=== PATIENT | male | born 1950 | race Caucasian/White ===

== ENCOUNTER 2018-09-05 13:36 | Emergency (ER) | payer OTHER, SELFPAY ==
[2018-09-05] VITALS (8 sets, daily range): BP systolic 143–156; BP diastolic 68–81; PULSE 73–97; RESP 15–20; TEMP 36.6; O2SAT 95–100; BMI 30.8
--- NOTE | 2018-09-05 13:44 | ED.RN ---
SPOKE TO IN OR, SHE STATES PT HAS SEVERE ANXIETY ATTACKS, [facility], HAVING MED CHANGES BUT SHE IS UNSURE OF DETAILS, DOESN'T KNOW ANY MED NAMES. PT TYPICALLY ABLE TO CARE FOR SELF, HAS JOB. PAST WEEK ANXIETY HAS ESCALATED, SOMETIMES UNABLE TO GET OUT OF BED OR EAT. HAS HX OF INPATIENT PSYCHIATRIC TX. FEELS PT HAS ESCALATED TODAY DUE TO HER PROCEDURE TODAY. PT THREATENING VIOLENCE IN TRIAGE, STATES YOU BETTER DO SOMETHING OR I'M GOING TO HURT PEOPLE. PT STATES HE WILL TODAY, DOES NOT WANT TO LIVE. WHILE THIS RN ON PHONE WITH , PT YELLING GOODBYE AND I'M SORRY IT'S GOING TO END THIS WAY TO HIS . PT INFORMING SISTER IN LAW TO TELL HIS FAMILY GOOD BYE.
--- NOTE | 2018-09-05 14:12 | ED.DCSUM_ITS ---
History of Present Illness Chief Complaint: Mental Health Informant: Patient, Family Onset: Days Current Severity: Moderate Narrative: here with basically inability to concentrate talking about the fact that he is he does not live anymore he is shaking Basically he has a mental health disorder that is unspecified according to his [id number] he has been very anxious and nervous recently, she believes he was discharged from a mental health facility in [place] last year he is followed by the local counseling center she is not sure what medication she is supposed be taking or if he is taking them He is upset over the fact that his is currently upstairs given [id number] if you want to let about to undergo surgery for breast cancer that has been quite upset While in the perioperative area he began verbalizing that he was and that he should simply he was anxious and nervous and he was brought to the emergency department Here he basically says that he needs to there is no reason for him to provide any information he indicated his name is Reese and that it did not really matter what his name was, he was obviously anxious and quite nervous we offered to medicate him with Geodon to help him he was given the Geodon 20 g IM and then later he said that he might flip out and punched the nurse he seemed very deliberate with that ideation I explained to him that behavior will be unacceptable he again verbalized the potential of punching the nurse and he was placed in four-point shiv to protect himself and the staff Past Medical History - Allergies and Home Meds Allergies/Adverse Reactions: Allergies No Known Allergies Allergy (Verified 09/05/18 13:44) Primary Care Physician: Care Physician,No Primary [Primary Care Provider] - Past Medical History: - Smoking Status: Current every day smoker Review of Systems ROS: - Some manner of unspecified psychiatric disorder General: Denies: Chills, Fever, Sweats Eyes: Denies: Visual changes - bilaterally, Diplopia ENT: Denies: Rhinorrhea, Sore throat Cardiovascular: Denies: Chest pain, Palpitations Respiratory: Denies: Dyspnea, Cough, Dyspnea on exertion Gastrointestinal: Denies: Abdominal pain, Nausea, Vomiting, Diarrhea, Melena, Hematochezia Genitourinary: Denies: Dysuria, Hematuria, Frequency Musculoskeletal: Denies: Back pain, Extremity Pain Skin: Denies: Rash, Wounds Neurological: Denies: Headache, Weakness, Numbness Psych: Reports: Depression, Anxiety, Suicidal thoughts Physical Exam Vital Signs/Narrative: Vital Signs Temp Pulse Resp BP Pulse Ox 09/05/18 13:41 98 F 97 20 H 156/81 H 100 General: Well nourished, Well developed, No Acute Distress Head: Normocephalic, Atraumatic Eyes: Perrl, EOMI ENT: Moist mucous membranes, No rhinorrhea Neck: Supple, Nontender Cardiovascular: Regular rate, Regular rhythm, No murmurs Respiratory: No distress, CTA bilaterally, Chest nontender Abdomen: Soft, Nontender, Nondistended, Normal bowel sounds Back: Nontender, Normal Inspection Extremities: Nontender, No edema Skin: Normal color, No rash Neurological: Alert, Oriented x3, Cranial nerves II-XII grossly intact, Normal Strength, Normal Sensation Psychological: Depressed, Agitated, - - He is anxious he is appears nervous he is not cooperative he provides partial history he simply states he is or is about to and there is no reason for him to provide us any information Diagnostic/Tx/Re-eval - Medical Decision Making Given all the above the patient is in four-point shiv as above, will screening labs were obtained he will continue to receive I via her IM medications to help control his situation and improve his current status and we will ask mental health services to see him pending mental health services evaluation Final impression Exacerbation of psychiatric disorder, suicidal ideation anxiety ED Disposition - Plan for ED Patient: Diagnosis: Suicidal ideation, Anxiety Instructions: Personality Disorder Referrals: Care Physician,No Primary [Primary Care Provider] -
[2018-09-05] MEDS: Ziprasidone IM 20 MG/ML VIAL IM (14:31)
[2018-09-05] MEDS: LORazepam 2 MG/ML Syringe IM (14:43)
[2018-09-05 15:24] LABS: Absolute Lymphocyte Count 1.06 X10^3/ul (0.83-4.51); Absolute Neutrophil Count 4.5 X10^3/uL (2.0-7.7); Basophil# 0.03 X10^3/uL; Basophil% 0.5 % (0-1); Eosinophil# 0.02 X10^3/uL; Eosinophils% 0.3 % (0-5); Hematocrit 46.4 % (40-54); Hemoglobin 15.6 g/dl (13.0-16.5); Lymphocyte # 1.06 X10^3/ul (4.0); Mean Corp Hgb Conc 33.6 g/gl (32-36); Mean Corpuscular Hgb 27.1 pg (27.0-32.0); Mean Corpuscular Volume 80.7 fL (80-94); Mean Platelet Vol. 9.9 fl (6.2-12.0); Monocyte% 9.6 % (0-10); Neutrophil # 4.51 X10^3/uL (2.7-7.7); Neutrophil % 72.4 % (47-70); Platelet Count 150 K/mm3 (150-450); RBC Distribution Width CV 14.6 % (11.6-14.6); RBC Distribution Width SD 42.4 fl (35.1-43.9); Red Blood Count 5.75 M/mm3 (4.6-6.2); White Blood Count 6.2 K/mm3 (4.4-11.0)
[2018-09-05 15:25] LABS: POSITIVE COUNT NO; POSITIVE DIFFERENTIAL NO; POSITIVE MORPHOLOGY NO
[2018-09-05 15:39] LABS: Alcohol, Blood (Medical)-Serum < 3.0 mg/dL
[2018-09-05 15:54] LABS: Anion Gap 10 (5-15); BUN 19 mg/dL (7-18); BUN/Creat Ratio 16.8 RATIO (10-20); Calcium,Total 9.7 mg/dL (8.5-10.1); Chloride 108 mmol/L (98-107); Creatinine, Serum 1.13 mg/dL (0.70-1.30); EST Glomerular Filtration Rate 69 mL/min (>60); Est Glom Filt Rate - Afr Amer 83 mL/min (>60); Glucose 95 mg/dL (74-106); Potassium 3.6 mmol/L (3.5-5.1); Sodium Level 139 mmol/L (136-145)
--- NOTE | 2018-09-05 16:21 | ED.RN ---
KAILASH WITH CRISIS IS WORKING ON PLACEMENT; PT IS NOW PINK SLIPPED
[2018-09-05 16:54] LABS: Amphetamine Urine VISTA NEGATIVE (<1000 ng/mL); Barbiturate Urine VISTA NEGATIVE (< 200 ng/mL); Benzodiazepine Urine VISTA NEGATIVE (< 200 ng/mL); Cocaine Urine VISTA NEGATIVE (< 300 ng/mL); Ecstacy Urine VISTA NEGATIVE (< 500 ng/mL); Methadone Urine VISTA NEGATIVE (< 300 ng/mL); PCP Urine VISTA NEGATIVE (< 25 ng/mL); THC Urine VISTA NEGATIVE (< 50 ng/mL); Vista UDS pH Range 6
[2018-09-06] VITALS (10 sets, daily range): BP systolic 138–150; BP diastolic 70–88; PULSE 75–87; RESP 15–18; TEMP 36.6; O2SAT 96–99
[2018-09-06] MEDS: traZODone 100 MG Tablet 200 MG PO (01:22)
--- NOTE | 2018-09-06 07:40 | NURSING ---
[facility] CALLED. TALKED TO MACHINIST APPRENTICE
--- NOTE | 2018-09-06 08:30 | ED.RN ---
VERIFIED WITH DR DORMAN FOR PAXIL DOSE BEOFRE CONFIRMING ORDER.
--- NOTE | 2018-09-06 09:12 | ED.RN ---
JUNE FROM [facility] CALLED BACK IN REGARDS TO PT REFERRAL. DECLINED ACCEPTANCE AT THIS TIME DUE TO: FROM INFORMATION THEY RECIEVED AND LACK OF PSYCHIATRIC HX THEIR DR RECOMMENDS [facility] AT THIS TIME.
[2018-09-06] MEDS: amLODIPine 10 MG Tablet PO (09:17)
[2018-09-06] MEDS: clonazePAM 0.5 MG Tablet PO (09:17)
[2018-09-06] MEDS: ARIPiprazole 5 MG Tablet PO (09:17)
[2018-09-06] MEDS: PARoxetine 10 MG Tablet 30 MG PO (09:18)
--- NOTE | 2018-09-06 09:18 | NURSING ---
FAXED CHART TO [facility], CRISIS [phone]
--- NOTE | 2018-09-06 10:07 | NURSING ---
ACCEPTED AT [facility]
== END 2018-09-06 10:51 ==
PROVIDERS: Emergency Provider Emergency Medicine; Family Provider Internal Medicine Infectious Disease; PCP Internal Medicine Infectious Disease
DX: R45.851 Suicidal ideations (principal); F41.9 Anxiety disorder, unspecified; F17.200 Nicotine dependence, unspecified, uncomplicated; Z79.899 Other long term (current) drug therapy
CPT/HCPCS: 36415; 80048; 80307; 80320; 85025; 96372; 99284; G0480; J3486

== ENCOUNTER 2018-10-29 15:11 | Emergency (ER) | payer SELFPAY ==
[2018-09-05 13:41] VITALS: BMI 30.8
[2018-10-29 15:13] VITALS: BP 125/74; PULSE 53; RESP 16; TEMP 36.6; O2SAT 98; BMI 25.4
--- NOTE | 2018-10-29 15:44 | ED.VIS.PSYCH ---
History of Present Illness Chief Complaint: Mental Health Informant: Patient, - - police Onset: - - a long time Context: Gradual Onset Conflict: - - health Timing: Continuous Current Severity: Severe Maximum Severity: Severe Worsened by: Situational factors Associated Symptoms: Depressed, Decreased Interest, Guilt, Decreased Concentration, Hopelessness, Suicidal Thoughts. Negative for: Agitated, Hostile, Threatening, Visual Hallucinations, Auditory Hallucinations Specific plan (suicidal thought): denies plan Narrative: Patient has been depressed for a long time having suicidal thoughts for a long time. He states he just sits around all day. He has an anxiety problem, he states that this makes him feel even more depressed about everything, when asked what his major trigger is he states I am depressed that I am me. I am depressed about myself. He does not have a plan. When asked what changed today, he states that his got tired of watching the lie around. His is undergoing chemotherapy for cancer which complicates matters. Please pink slipped him here saying similar to above. Patient states he has done counseling before but it does not help. Neither the medications. He states he stopped taking all his medications multiple days ago for his other medical problems too. Prior similar symptoms: Yes - Past Medical History (1) Depression Status: Chronic (2) Anxiety Status: Chronic (3) Hypertension Status: Chronic (4) Hyperlipidemia Status: Chronic Past Medical History - Allergies and Home Meds Allergies/Adverse Reactions: Allergies No Known Allergies Allergy (Verified 10/29/18 15:13) Primary Care Physician: Freddie Gan MD [Primary Care Provider] - Lives: Spouse/ Significant Other Smoking Status: Former smoker Alcohol: None Drugs: None Review of Systems General: Denies: Chills, Fever, Sweats Eyes: Denies: Visual changes - bilaterally, Diplopia ENT: Reports: - - anterior mandibular gingival pain x few days, no bleeding. Denies: Rhinorrhea, Sore throat Cardiovascular: Denies: Chest pain, Palpitations Respiratory: Denies: Dyspnea, Cough, Dyspnea on exertion Gastrointestinal: Denies: Abdominal pain, Nausea, Vomiting, Diarrhea, Melena, Hematochezia Genitourinary: Reports: - - sores in private area. Denies: Dysuria, Hematuria, Frequency Musculoskeletal: Denies: Back pain, Extremity Pain Skin: Reports: Wounds. Denies: Rash Neurological: Denies: Headache, Weakness, Numbness Psych: Reports: Depression, Anxiety, Suicidal thoughts. Denies: Suicidal ideations Physical Exam Vital Signs/Narrative: Vital Signs Temp Pulse Resp BP Pulse Ox 10/29/18 15:13 97.8 F 53 L 16 125/74 H 98 Inital Vital Signs reviewed: Yes General: Well nourished, Well developed Head: Normocephalic, Atraumatic Eyes: Perrl, EOMI ENT: Moist mucous membranes, No rhinorrhea Neck: Supple, Nontender Cardiovascular: Regular rate, Regular rhythm, No murmurs Respiratory: No distress, CTA bilaterally, Chest nontender Abdomen: Soft, Nontender, Nondistended, Normal bowel sounds Back: Nontender, Normal Inspection Extremities: Nontender, No Edema Skin: Normal color, No rash, No Trauma Neurological: Alert, Oriented x3, Cranial nerves II-XII grossly intact, Normal Strength, Normal Sensation, Normal Gait Psych: Normal Speech Pattern, Logical sequential goal directed thoughts, Good Insight, Normal Appearance, Depressed, Suicidal thoughts. Negative for: Homicidal thoughts, Hallucinations, Delusions Diagnostic/Tx/Re-eval Laboratory Results 10/29/18 10/29/18 10/29/18 15:40 16:07 16:07 WBC 5.5 RBC 5.92 Hgb 16.6 H Hct 50.5 MCV 85.3 MCH 28.0 MCHC 32.9 RDW Std Deviation 51.0 H RDW Coeff of Ray 17.4 H Plt Count 148 L MPV 9.6 Immature Gran % (Auto) 0.400 Neut % (Auto) 61.2 Lymph % (Auto) 22.6 [place] % (Auto) 10.9 H Eos % (Auto) 4.0 Baso % (Auto) 0.9 Absolute Neuts (auto) 3.4 Absolute Lymphs (auto) 1.24 Nucleated RBC % 0 Sodium 142 Potassium 3.9 Chloride 109 H Carbon Dioxide 27.0 Anion Gap 6 BUN 17 Creatinine 0.92 Estim Creat Clear Calc 85.52 Est GFR (MDRD) Af Amer 105 Est GFR (MDRD) Non-Af 87 BUN/Creatinine Ratio 18.4 Glucose 94 Calcium 9.0 Urine Opiates Screen NEGATIVE Urine Methadone Screen NEGATIVE Ur Barbiturates Screen NEGATIVE Ur Phencyclidine Scrn NEGATIVE Ur Amphetamines Screen NEGATIVE U Methamphetamin-MDMA NEGATIVE U Benzodiazepines Scrn NEGATIVE Urine Cocaine Screen NEGATIVE U Cannabinoids Screen NEGATIVE Ur Drug Screen Comment Ethyl Alcohol 10/29/18 16:07 WBC RBC Hgb Hct MCV MCH MCHC RDW Std Deviation RDW Coeff of Ray Plt Count MPV Immature Gran % (Auto) Neut % (Auto) Lymph % (Auto) [place] % (Auto) Eos % (Auto) Baso % (Auto) Absolute Neuts (auto) Absolute Lymphs (auto) Nucleated RBC % Sodium Potassium Chloride Carbon Dioxide Anion Gap BUN Creatinine Estim Creat Clear Calc Est GFR (MDRD) Af Amer Est GFR (MDRD) Non-Af BUN/Creatinine Ratio Glucose Calcium Urine Opiates Screen Urine Methadone Screen Ur Barbiturates Screen Ur Phencyclidine Scrn Ur Amphetamines Screen U Methamphetamin-MDMA U Benzodiazepines Scrn Urine Cocaine Screen U Cannabinoids Screen Ur Drug Screen Comment Ethyl Alcohol < 3.0 Labs are unremarkable, patient is not intoxicated or under the influence of any substance. He is medically cleared for crisis evaluation. Crisis agrees that he needs to be placed for further psychiatric evaluation. Patient pink slip and awaiting acceptance to [facility]. ED Disposition - Plan for ED Patient: Disposition: Psychiatric Hospital or Unit Diagnosis: Suicidal thoughts, Depression Referrals: Freddie Gan MD [Primary Care Provider] -
--- NOTE | 2018-10-29 16:19 | CM.ED ---
SOCIAL WORK DISCUSSED PATIENT'S CASE WITH DR. RAMOS. PATIENT TO BE EVALUATED ONCE MEDICALLY CLEARED D/T SELF PAY STATUS. THIS WORKER TO UPDATE CRISIS. NURSE, MELITA UPDATED. KATY MARCIAL, [employer] SYSTEMS ENGINEER, FILTER PULP WASHER.
[2018-10-29 16:23] LABS: Absolute Lymphocyte Count 1.24 X10^3/uL (0.83-4.51); Absolute Neutrophil Count 3.4 X10^3/uL (2.0-7.7); Basophil# 0.05 X10^3/uL; Basophil% 0.9 % (0-1); Eosinophil# 0.22 X10^3/uL; Hematocrit 50.5 % (40-54); Hemoglobin 16.6 g/dL (13.0-16.5); Lymphocyte # 1.24 X10^3/ul (4.0); Lymphocyte % 22.6 % (19-41); Mean Corp Hgb Conc 32.9 g/dL (32-36); Mean Corpuscular Volume 85.3 fL (80-94); Mean Platelet Vol. 9.6 fl (6.2-12.0); Monocyte% 10.9 % (0-10); NRBC Flagged by Analyzer 0 % (0-5); Neutrophil # 3.35 X10^3/uL (2.7-7.7); Neutrophil % 61.2 % (47-70); Platelet Count 148 K/mm3 (150-450); RBC Distribution Width CV 17.4 % (11.6-14.6); Red Blood Count 5.92 M/mm3 (4.6-6.2); White Blood Count 5.5 K/mm3 (4.4-11.0)
[2018-10-29 16:34] LABS: Amphetamine Urine VISTA NEGATIVE (<1000 ng/mL); Barbiturate Urine VISTA NEGATIVE (< 200 ng/mL); Benzodiazepine Urine VISTA NEGATIVE (< 200 ng/mL); Cocaine Urine VISTA NEGATIVE (< 300 ng/mL); Ecstacy Urine VISTA NEGATIVE (< 500 ng/mL); Methadone Urine VISTA NEGATIVE (< 300 ng/mL); PCP Urine VISTA NEGATIVE (< 25 ng/mL); THC Urine VISTA NEGATIVE (< 50 ng/mL); Vista UDS pH Range 6
[2018-10-29 16:43] LABS: Anion Gap 6 (5-15); BUN 17 mg/dL (7-18); BUN/Creat Ratio 18.4 RATIO (10-20); Chloride 109 mmol/L (98-107); Creatinine, Serum 0.92 mg/dL (0.70-1.30); EST Glomerular Filtration Rate 87 mL/min (>60); Est Glom Filt Rate - Afr Amer 105 mL/min (>60); Estimated Creatinine Clearance 85.52 ml/min; Glucose 94 mg/dL (74-106); Potassium 3.9 mmol/L (3.5-5.1); Sodium Level 142 mmol/L (136-145)
[2018-10-29 17:59] LABS: Alcohol, Blood (Medical)-Serum < 3.0 mg/dL
--- NOTE | 2018-10-29 18:03 | CM.ED ---
SOCIAL WORK CRISIS CALLED TO UPDATE ON CONSULT. KAILASH WILL BE IN TO ASSESS PATIENT. KATY MARCIAL, PACKING LINE OPERATOR, ENGINE DYNAMOMETER TESTER.
--- NOTE | 2018-10-29 18:06 | ED.RN ---
KAILASH CALLED FROM CRISIS AND WILL BE HERE AFTER HE FINISHES AT [facility]
[2018-10-29 19:00] VITALS: BP 133/86; PULSE 75; RESP 16; TEMP 37.2; O2SAT 99
--- NOTE | 2018-10-29 19:58 | ED.RN ---
[facility]NR[facility] TO [facility]
--- NOTE | 2018-10-29 22:11 | ED.RN ---
notified that pt has not been taking his HS trazodone. encouraged pt to inform staff if unable to sleep. has also not been taking any of his other medications.
[2018-10-29 22:57] VITALS: BP 128/86; PULSE 75; RESP 14; TEMP 36.8; O2SAT 99
[2018-10-29 23:58] VITALS: RESP 17
--- NOTE | 2018-10-30 00:19 | EKG12_ITS ---
Test Reason : MHC Blood Pressure : / mmHG Vent. Rate : 066 BPM Atrial Rate : 066 BPM P-R Int : 142 ms QRS Dur : 090 ms QT Int : 430 ms P-R-T Axes : 050 044 062 degrees QTc Int : 450 ms Normal sinus rhythm Normal ECG Confirmed by JENNIFER TINOCO ([id number]), photograph editor THAD GARCIA ([id number]) on 11/06/2018 10:13:25 AM Referred By: RACHEL Confirmed By:JENNIFER TINOCO
[2018-10-30 01:05] LABS: AST(SGOT) 19 U/L (15-37); Alanine Aminotransfer ALT/SGPT 57 U/L (16-61); Albumin, Serum 3.7 g/dL (3.2-5.0); Alkaline Phosphatase 78 U/L (45-117); Bilirubin, Direct 0.21 mg/dL (0.00-0.30); Globulin 3.7 g/dL (2.2-4.2); Protein, Total 7.4 g/dL (6.4-8.2)
[2018-10-30 02:16] VITALS: BP 131/74; PULSE 86; RESP 22; O2SAT 97
[2018-10-30 03:49] VITALS: RESP 18
--- NOTE | 2018-10-30 03:59 | ED.RN ---
DR. BENITEZ TOLD THIS NURSE THAT WE ARE NOT GOING TO START HIS MEDICATIONS BACK UP SINCE PATIENT HAS NOT BEEN ON THE MEDICATIONS FOR A WHILE.
[2018-10-30 04:00] VITALS: RESP 18
[2018-10-30 05:15] VITALS: BP 130/88; PULSE 59; RESP 18; TEMP 36.9; O2SAT 97
[2018-10-30 06:31] VITALS: BP 130/88; PULSE 59; RESP 18; TEMP 36.9; O2SAT 97
--- NOTE | 2018-10-30 06:31 | ED.RN ---
[facility] AT 9AM
[2018-10-30 08:00] VITALS: BP 105/74; PULSE 91; RESP 16; TEMP 36.4; O2SAT 98
== END 2018-10-30 09:17 ==
PROVIDERS: Emergency Provider Emergency Medicine; Family Provider Internal Medicine Infectious Disease; PCP Internal Medicine Infectious Disease
DX: R45.851 Suicidal ideations (principal); F32.9 Major depressive disorder, single episode, unspecified; F41.9 Anxiety disorder, unspecified; I10 Essential (primary) hypertension; E78.5 Hyperlipidemia, unspecified; Z79.899 Other long term (current) drug therapy; Z87.891 Personal history of nicotine dependence
CPT/HCPCS: 80048; 80076; 80307; 80320; 85025; 93005; 99284; G0480

== ENCOUNTER → 2021-01-05 13:43 | Outpatient (CLI) | payer MEDICARE, OTHER, SELFPAY ==
[2021-01-05 15:17] LABS: PSA,Total - Annual Screen 0.76 ng/mL (0.00-4.00)
== END ==
PROVIDERS: PCP Internal Medicine Infectious Disease; Referring Provider Urology; Visit Provider Urology
DX: Z12.5 Encounter for screening for malignant neoplasm of prostate (principal)
CPT/HCPCS: 36415; 84153; G0103

== ENCOUNTER 2022-07-12 03:15 | Emergency (ER) | payer MEDICARE, OTHER, SELFPAY ==
[2022-07-12 03:17] VITALS: BP 148/78; PULSE 65; RESP 16; TEMP 36.1; O2SAT 96; BMI 26.8
[2022-07-12 03:29] VITALS: O2SAT 97
--- NOTE | 2022-07-12 03:30 | EKG12_ITS ---
Test Reason : MHC Blood Pressure : / mmHG Vent. Rate : 062 BPM Atrial Rate : 062 BPM P-R Int : 154 ms QRS Dur : 082 ms QT Int : 466 ms P-R-T Axes : 043 024 061 degrees QTc Int : 472 ms Normal sinus rhythm Nonspecific T wave abnormality Prolonged QT Abnormal ECG Confirmed by GORDON PAYNE, KIRA ([id number]), film editor EDUARDO LOZA ([id number]) on 07/12/2022 1:15:07 PM Referred By: ELIO Confirmed By:MELINDA LEYVA MD
[2022-07-12 03:57] LABS: Absolute Lymphocyte Count 1.15 X10^3/uL (0.83-4.51); Absolute Neutrophil Count 3.3 X10^3/uL (2.0-7.7); Basophil# 0.03 X10^3/uL; Basophil% 0.6 % (0-1); Eosinophils% 1.9 % (0-5); Hematocrit 47.4 % (40-54); Hemoglobin 15.8 g/dL (13.0-16.5); Lymphocyte # 1.15 X10^3/ul (0.83-4.51); Lymphocyte % 21.5 % (19-41); Mean Corp Hgb Conc 33.3 g/dL (32-36); Mean Corpuscular Hgb 29.9 pg (27.0-32.0); Mean Corpuscular Volume 89.6 fL (80-94); Mean Platelet Vol. 9.6 fl (6.2-12.0); Monocyte% 13.1 % (0-10); NRBC Flagged by Analyzer 0 % (0-5); Neutrophil # 3.34 X10^3/uL (2.7-7.7); Neutrophil % 62.3 % (47-70); Platelet Count 110 K/mm3 (150-450); RBC Distribution Width CV 13.3 % (11.6-14.6); RBC Distribution Width SD 43.5 fl (35.1-43.9); Red Blood Count 5.29 M/mm3 (4.6-6.2); White Blood Count 5.4 K/mm3 (4.4-11.0)
--- NOTE | 2022-07-12 04:09 | EDS_ITS ---
HPI History of Present Illness Chief Complaint: Overdose Informant: patient and EMS Narrative Narrative: About 2 hours prior to arrival patient intentionally overdosed on trazodone, admits to being suicidal. Patient estimates he took maybe 20 tablets. They are his prescription. He did not take any other medications or pills. He provides very little history, one-word answers to most questions. He vomited a couple times, he does not know if he saw any pill fragments or not. He is not nauseated now. [facility] Medical History (Updated 07/12/22 @ 04:[address] Randal North MD) Anxiety Depression Hyperlipidemia Hypertension Home Medications amlodipine 10 mg tablet 10 mg PO DAILY bp 09/05/18 [History Last Taken 09/04/18] clonazepam 0.5 mg tablet 0.25 mg PO BID ANXIETY 09/06/18 [History Last Taken Unknown] hydroxyzine pamoate 50 mg capsule 50 mg PO 4X/DAY PRN PRN Anxiety 09/06/18 [History Last Taken Unknown] aripiprazole 10 mg tablet 10 mg PO DAILY MEMORY 10/29/18 [History Last Taken Unknown] bisacodyl 5 mg tablet,delayed release 10 mg PO DAILY 10/29/18 [History Last Taken Unknown] lactulose 10 gram/15 mL oral solution 30 ml PO Q4H PRN PRN Constipation 10/29/18 [History Last Taken Unknown] metoprolol tartrate 25 mg tablet 25 mg PO DAILY 10/29/18 [History Last Taken Unknown] paroxetine HCl 40 mg tablet 40 mg PO DAILY depression 10/29/18 [History Last Taken Unknown] trazodone 150 mg tablet 150 mg PO QHS sleep 10/29/18 [History Last Taken Unknown] trazodone 50 mg tablet 50 mg PO QHS sleep 10/29/18 [History Last Taken Unknown] Allergy/AdvReac Type Severity Reaction Status Date / Time No Known Allergies Allergy Verified 10/29/18 15:13 Social History Smoking Status: Former smoker ROS ROS ED Constitutional Constitutional ED: Denies chills or fever(s) Eyes Eyes: Denies change in vision or diplopia ENT ENT ED: Denies rhinorrhea or sore throat Cardiovascular Cardiovascular: Denies chest pain or palpitations Respiratory/Chest Respiratory/Chest: Denies cough or dyspnea Gastrointestinal Gastrointestinal: Reports vomiting; Denies abdominal pain or diarrhea Genitourinary Genitourinary ED: Denies dysuria or hematuria Musculoskeletal Musculoskeletal: Denies back pain or neck pain Integumentary Denies abscess or rash Neurologic Neurologic: Denies headache(s), paresthesias or weakness Psychiatric Psychiatric: Reports depression, suicidal ideation and suicidal thoughts; Denies anxiety EXAM Physical Exam Const Vital Signs: 07/12/22 03:17 07/12/22 03:29 Temperature 96.9 F L Temperature Source Temporal Pulse Rate 65 Respiratory Rate 16 Respiratory Effort Normal Non-Labored Respiratory Depth Normal Respiratory Pattern Normal Blood Pressure 148/78 H Blood Pressure Mean 101 Pulse Ox 96 Oxygen Delivery Method Room Air Room Air Positive well nourished and well developed Constitutional Narrative: Keenly alert and in no distress. Hard of hearing. General Appearance ED: well developed and NAD HEENT Reports moist mucous membranes normocephalic and atraumatic Eyes PERRL and EOMs intact bilaterally General Eye ED: Negative for scleral icterus Neck full ROM, no lymphadenopathy and supple Resp normal respiratory effort and clear to auscultation bilaterally Cardio regular rate, regular rhythm and no murmurs Rate: regular rate Rhythm: regular rhythm GI non-tender and non-distended Auscultation: normoactive bowel sounds Palpation: soft Back/Spine no CVA tenderness General Back: other FROM Extremity normal to inspection General Extremety ED: Negative for edema, pulses abnormal or tenderness General Extremity: Negative for edema or pulses abnormal Neuro oriented x3, CN's II-XII intact bilaterally and no sensory deficits noted Sensorium / Orientation: awake and alert Motor Exam: strength 5/5 throughout Psych thought process normal, cooperative, activity/motor behavior normal and denies homicidal ideation Mood & Affect: depressed Thought Content: suicidality Skin no rashes or lesions noted and no wounds Lesions: no lesions Rashes: no rashes MDM MDM MDM Narrative Medical decision making narrative: EKG as computer by the computer was prolonged, however he has flattened T waves diffusely, and some that are suspicious for U waves, which could be confused by the computer. Therefore I do my own measurement, and his QT is nowhere near prolonged. Visually grossly speaking, it does look normal. The patient has 2 empty pill bottles that were brought with him by EMS, regarding trazodone. One of them are 50 mg tablets and the other are 150. The patient does not know which one he took. Both are empty, and were filled in January which was 6 months ago or more. His labs and toxicology are all normal, he has no anion gap metabolic acidosis and no acetaminophen or salicylate positivity. Clinically and hemodynamically he has remained stable without the need for any emergent intervention. I discussed with poison control regarding all of this. They state if he has been 4-6 hours with no severe drowsiness, QT prolongation, or seizures, then he may be medically cleared. At this time he has been here for 3 hours, he was initially evaluated 2 hours postingestion, and he is doing very well and keenly alert. Therefore at this time he is medically cleared, he will continue to be observed here until crisis or social work can evaluate him for placement later this morning. I have written pink slip so that the patient must stay. Lab Data Attestation: I reviewed the patient's lab results. Labs: Laboratory Results - last 24 hr 07/12/22 07/12/22 07/12/22 03:48 03:48 03:48 WBC 5.4 RBC 5.29 Hgb 15.8 Hct 47.4 MCV 89.6 MCH 29.9 MCHC 33.3 RDW Std Deviation 43.5 RDW Coeff of Ray 13.3 Plt Count 110 L MPV 9.6 Immature Gran % (Auto) 0.600 Neut % (Auto) 62.3 Lymph % (Auto) 21.5 [place] % (Auto) 13.1 H Eos % (Auto) 1.9 Baso % (Auto) 0.6 Absolute Neuts (auto) 3.3 Absolute Lymphs (auto) 1.15 Nucleated RBC % 0 Sodium 139 Potassium 4.1 Chloride 110 H Carbon Dioxide 21.0 Anion Gap 8 BUN 21 H Creatinine 0.92 Estim Creat Clear Calc 82.00 Est GFR (MDRD) Af Amer 105 Est GFR (MDRD) Non-Af 87 BUN/Creatinine Ratio 22.9 H Glucose 124 H Calcium 9.4 Total Bilirubin 0.50 AST 31 ALT 43 Alkaline Phosphatase 77 Total Protein 7.2 Albumin 3.8 Globulin 3.4 Albumin/Globulin Ratio 1.1 Salicylates Acetaminophen Ethyl Alcohol < 3.0 07/12/22 03:48 WBC RBC Hgb Hct MCV MCH MCHC RDW Std Deviation RDW Coeff of Ray Plt Count MPV Immature Gran % (Auto) Neut % (Auto) Lymph % (Auto) Morrison % (Auto) Eos % (Auto) Baso % (Auto) Absolute Neuts (auto) Absolute Lymphs (auto) Nucleated RBC % Sodium Potassium Chloride Carbon Dioxide Anion Gap BUN Creatinine Estim Creat Clear Calc Est GFR (MDRD) Af Amer Est GFR (MDRD) Non-Af BUN/Creatinine Ratio Glucose Calcium Total Bilirubin AST ALT Alkaline Phosphatase Total Protein Albumin Globulin Albumin/Globulin Ratio Salicylates < 1.7 L Acetaminophen < 2.0 L Ethyl Alcohol Rhythm Strip Rhythm Strip: Sinus Rhythm Rate: 62 Ectopy: None EKG Initial EKG: Attestation: I personally reviewed and interpreted this EKG as follows: Interpretation: Sinus Rhythm, No Acute Injury Pattern and Non-Specific ST Changes (Diffuse T wave flattening) Comments: QTc 285 ms as measured by myself Prior EKG tracings: available for review Prior: Changed (Flattened T waves are different than his prior EKG in 10/2018) Discharge Plan Triage Chief Complaint: Overdose ED Provider: Randal North Dx/Rx/DC Orders Clinical Impression: Intentional overdose of trazodone, Suicide gesture, Suicidal ideation Prescriptions: No Action amlodipine 10 MG tablet 10 mg PO DAILY clonazepam 0.5 MG tablet 0.25 mg PO BID hydroxyzine pamoate 50 MG capsule 50 mg PO 4X/DAY PRN PRN (Reason: Anxiety) trazodone 50 MG tablet 50 mg PO QHS trazodone 150 MG tablet 150 mg PO QHS bisacodyl 5 MG tablet 10 mg PO DAILY paroxetine HCl 40 MG tablet 40 mg PO DAILY aripiprazole 10 MG tablet 10 mg PO DAILY metoprolol tartrate 25 MG tablet 25 mg PO DAILY lactulose 10 GM/15 ML solution 30 ml PO Q4H PRN PRN (Reason: Constipation) Label Comments: TAKE 30 ML BY MOUTH EVERY 4 HOURS NEEDED Primary Care Provider: Freddie Gan Referrals: Freddie Gan MD [Primary Care Provider] - Disposition Disposition: Psychiatric Hospital or Unit
[2022-07-12 04:23] LABS: Alcohol, Blood (Medical)-Serum < 3.0 mg/dL
[2022-07-12 04:24] LABS: ALB/GLOB Ratio 1.1 RATIO (0.9-2.4); AST(SGOT) 31 U/L (15-37); Alanine Aminotransfer ALT/SGPT 43 U/L (16-61); Albumin, Serum 3.8 g/dL (3.2-5.0); Alkaline Phosphatase 77 U/L (45-117); Anion Gap 8 (5-15); BUN 21 mg/dL (7-18); BUN/Creat Ratio 22.9 RATIO (10-20); Calcium,Total 9.4 mg/dL (8.5-10.1); Chloride 110 mmol/L (98-107); Creatinine, Serum 0.92 mg/dL (0.70-1.30); EST Glomerular Filtration Rate 87 mL/min (>60); Est Glom Filt Rate - Afr Amer 105 mL/min (>60); Globulin 3.4 g/dL (2.2-4.2); Glucose 124 mg/dL (74-106); Potassium 4.1 mmol/L (3.5-5.1); Protein, Total 7.2 g/dL (6.4-8.2); Sodium Level 139 mmol/L (136-145)
[2022-07-12 04:47] LABS: Salicylate < 1.7 mg/dL (2.8-20.0)
[2022-07-12 04:59] LABS: Acetaminophen (Tylenol) Level < 2.0 ug/mL (10.0-30.0)
--- NOTE | 2022-07-12 05:55 | NURSING ---
CALLED CRISIS AT [id number]
[2022-07-12 07:42] VITALS: BP 142/78; RESP 16; O2SAT 96
[2022-07-12 08:50] VITALS: BP 135/65; PULSE 83; RESP 16; O2SAT 96
[2022-07-12] MEDS: Ondansetron ODT 4 MG Tablet PO (09:59)
--- NOTE | 2022-07-12 10:00 | NURSING ---
CRISIS CALLED REQUESTING A TOX SCREEN AND EKG BE SENT FOR GENER[facility]
--- NOTE | 2022-07-12 11:40 | NURSING ---
GENERATIONS CALLED WITH ACCEPTANCE-- DR BLANCHARD-- [place] LOCATION -- RN TO RN [phone] CALLED PHYSICIANS TO SET UP TRANSPORT ETA GIVEN--60 MINUTES-- [id number]
[2022-07-12 11:46] LABS: Amphetamine Urine VISTA NEGATIVE (<1000 ng/mL); Barbiturate Urine VISTA NEGATIVE (< 200 ng/mL); Benzodiazepine Urine VISTA NEGATIVE (< 200 ng/mL); Cocaine Urine VISTA NEGATIVE (< 300 ng/mL); Ecstacy Urine VISTA POSITIVE (< 500 ng/mL); Methadone Urine VISTA NEGATIVE (< 300 ng/mL); PCP Urine VISTA NEGATIVE (< 25 ng/mL); THC Urine VISTA NEGATIVE (< 50 ng/mL); Vista UDS pH Range 5
[2022-07-12 12:20] VITALS: BP 106/62; PULSE 69; RESP 16; O2SAT 98
== END 2022-07-12 12:52 ==
PROVIDERS: Emergency Provider Emergency Medicine; PCP Internal Medicine Infectious Disease; Visit Provider Emergency Medicine
DX: R45.851 Suicidal ideations (principal); T43.212A Poisoning by selective serotonin and norepinephrine reuptake inhibitors, intentional self-harm, initial encounter; R11.2 Nausea with vomiting, unspecified; E78.5 Hyperlipidemia, unspecified; I10 Essential (primary) hypertension; F41.9 Anxiety disorder, unspecified; F32.A Depression, unspecified; Z87.891 Personal history of nicotine dependence
CPT/HCPCS: 80053; 80307; 80329; 82077; 85025; 87811; 93005; 99285; A4216; G0480